=== PATIENT | female | born 1965 | race Caucasian/White ===

== ENCOUNTER 2025-03-26 06:23 | Day surgery (SDC) | payer OTHER, SELFPAY ==
[2025-03-19 09:21] LABS: Hematocrit 40.6 % (37.0-47.0); Hemoglobin 13.3 g/dL (12.0-16.0); Mean Corp Hgb Conc. 32.8 g/dL (33.0-37.0); Mean Corpuscular Volume 91.2 fL (81.0-99.0); Platelet Count 283 10^3/uL (130-400); Red Cell Dist. Width 13.3 % (11.5-14.5)
[2025-03-19 09:54] LABS: Blood Urea Nitrogen 11 mg/dl (7-17); Calcium 9.8 mg/dl (8.4-10.2); Carbon Dioxide 30 mmol/L (22-30); Chloride 108 mmol/L (98-107); Glucose 95 mg/dl (70-99); Potassium 5.6 mmol/L (3.5-5.1); Sodium 142 mmol/L (135-145); eGFR > 60.00
[2025-03-19 14:01] VITALS: BMI 21.1
--- NOTE | 2025-03-20 11:24 | PTCARENOTE ---
Abnormal K+ 5.6 collected 03/19/[address] Marti [address] Dr Ballesteros's office
--- NOTE | 2025-03-20 13:37 | PTCARENOTE ---
Patients 03/19 potassium 5.6- Dr. Champagne notified- potassium to be repeated morning of surgery
[2025-03-26] VITALS (8 sets, daily range): BP systolic 95–124; BP diastolic 53–66; BMI 21.1
[2025-03-26] MEDS: EMEND 40 MG PO (08:39)
[2025-03-26] MEDS: NORMOSOL-R/PLASMALYTE-A 1000 IV (09:01)
[2025-03-26 09:51] LABS: Potassium 4.3 mmol/L (3.5-5.1)
== END 2025-03-26 13:42 | disposition home or self-care (01) ==
LOC: SDS 06:23
PROVIDERS: Anesthesiology; ATTENDING PHYSICIAN Obstetrics & Gynecology; FAMILY PHYSICIAN Family Medicine
DX: N99.3 Prolapse of vaginal vault after hysterectomy (principal); N95.8 Other specified menopausal and perimenopausal disorders; N39.3 Stress incontinence (female) (male); Y83.8 Other surgical procedures as the cause of abnormal reaction of the patient, or of later complication, without mention of misadventure at the time of the procedure; N36.41 Hypermobility of urethra
CPT/HCPCS: 57282; 57260; 57288; 36415; 80048; 84132; 85027; 86850; 86900; 86901; 93005; C1771